=== PATIENT | female | born 1945 | race Caucasian/White ===

== ENCOUNTER 2017-10-02 06:38 | Emergency (ER) | payer OTHER ==
[~2017-10-02 06:38] MED LIST: A20IH1 IH; BUDE10.2 IH; DIAZ10TA4 PO; LEVO500T2 PO; LOSA1TAB42 PO; METH4TAB PO; MONT5TAB13 PO
[2017-10-02] MEDS ORDERED: IPRATROPIUM/ALBUTEROL SULFATE 3 ML SOLUTION IH ONE ×2 (06:57→07:51)
[2017-10-02] MEDS ORDERED: SODIUM CHLORIDE 0.9% 1000ML 1,000 ML IV ONE (06:59)
[2017-10-02] MEDS ORDERED: METHYLPREDNISOLONE SOD SUCC 125MG/2ML VIAL ONE (06:59)
[2017-10-02] MEDS ORDERED: ACETAMINOPHEN-CODEINE ELIXIR 5 ML UDCUP ONE (07:09)
[2017-10-02 07:14] LABS: BASOPHILS % (AUTO) 0.4 % (0.0-5.0); EOSINOPHILS % (AUTO) 0.2 % (0.0-8.0); HEMATOCRIT 42.8 % (36-48); LYMPHOCYTES % (AUTO) 18.8 % (21.0-51.0); MEAN CORPUSCULAR HEMOGLOBIN 32.1 pg (27.0-33.0); MEAN CORPUSCULAR HGB CONC 34.5 g/dL (32.0-36.0); MEAN CORPUSCULAR VOLUME 92.9 fL (79-99); MONOCYTES % (AUTO) 15.2 % (3.0-13.0); NEUTROPHILS % (AUTO) 65.4 % (40.0-77.0); PLATELET COUNT (AUTO) 158 K/uL (130-400); RED BLOOD CELL COUNT(AUTO) 4.61 MIL/uL (4.00-5.50); RED CELL DISTRIBUTION WIDTH 13.8 % (11.0-15.5); WHITE BLOOD COUNT (AUTO) 6.3 K/uL (4.8-10.8)
[2017-10-02 07:23] LABS: CREATININE 0.8 mg/dL (0.5-1.5); POTASSIUM 3.3 mmol/L (3.5-5.1)
[2017-10-02 07:26] LABS: INR 0.91 (0.85-1.15); PARTIAL THROMBOPLASTIN TIME 30.2 SEC (26.3-35.5); PROTHROMBIN TIME 9.6 SEC (9.6-11.6)
[2017-10-02 07:29] LABS: ALBUMIN 3.2 g/dL (3.5-5.0); BILIRUBIN,TOTAL 0.2 mg/dL (0.2-1.0)
[2017-10-02 07:46] LABS: B-TYPE NATRIURETIC PEPTIDE 33 pg/mL (0-100)
[2017-10-02] MEDS ORDERED: HYDROXYZINE HCL 25 MG TABLET ONE (07:47)
[2017-10-02] MEDS ORDERED: POTASSIUM CHLORIDE 20 MEQ ERTAB PO ONE (07:51)
[2017-10-02] MEDS ORDERED: ALBUTEROL SULFATE 0.083% 2.5 MG/3 ML INH IH ONE (08:02)
[2017-10-02 08:10] LABS: RAPID GROUP A STREP NEGATIVE (NEGATIVE)
== END 2017-10-02 08:42 | disposition home or self-care (01) ==
LOC: EDH 06:38
DX: J44.1 Chronic obstructive pulmonary disease with (acute) exacerbation (principal); J30.9 Allergic rhinitis, unspecified; F41.9 Anxiety disorder, unspecified; E11.9 Type 2 diabetes mellitus without complications; I10 Essential (primary) hypertension; Z88.8 Allergy status to other drugs, medicaments and biological substances; Z90.710 Acquired absence of both cervix and uterus
CPT/HCPCS: 36415; 71045; 80053; 83880; 84484; 85025; 85610; 85730; 87804 ×2; 87880; 93005; 94640 ×2; 96361; 96374; 99285; J2930; J7030

== ENCOUNTER 2017-10-03 23:40 | Inpatient (IN) | payer OTHER ==
[~2017-10-03] VITALS: Ht 170.2 cm; Wt 69.0 kg
[2017-10-03] MEDS ORDERED: IPRATROPIUM/ALBUTEROL SULFATE 3 ML SOLUTION IH ONE (23:46)
[2017-10-03] MEDS ORDERED: METHYLPREDNISOLONE SOD SUCC 125MG/2ML VIAL ONE (23:50)
[2017-10-04] VITALS (25 sets, daily range): BP systolic 80–163; BP diastolic 30–84
[2017-10-04 00:09] LABS: ABG OXYGEN SATURATION 75.1 % (95.0-99.0); BASE EXCESS,VENOUS BLOOD GAS -4.7 (-2.0-3.0); PCO2,VENOUS BLOOD GAS 134 (32-45); PH,VENOUS BLOOD GAS 6.997 (7.350-7.450)
[2017-10-04 00:19] LABS: CREATININE 0.8 mg/dL (0.5-1.5); POTASSIUM 4.6 mmol/L (3.5-5.1)
[2017-10-04 00:24] LABS: INR 0.92 (0.85-1.15); PARTIAL THROMBOPLASTIN TIME 26.6 SEC (26.3-35.5); PROTHROMBIN TIME 9.7 SEC (9.6-11.6)
[2017-10-04 00:27] LABS: BASOPHILS % (AUTO) 0.2 % (0.0-5.0); EOSINOPHILS % (AUTO) 0.1 % (0.0-8.0); HEMATOCRIT 47.3 % (36-48); LYMPHOCYTES % (AUTO) 21.7 % (21.0-51.0); MEAN CORPUSCULAR HEMOGLOBIN 31.6 pg (27.0-33.0); MEAN CORPUSCULAR HGB CONC 33.3 g/dL (32.0-36.0); MEAN CORPUSCULAR VOLUME 95.1 fL (79-99); MONOCYTES % (AUTO) 12.2 % (3.0-13.0); NEUTROPHILS % (AUTO) 65.8 % (40.0-77.0); NUCLEATED RED BLOOD CELLS 0.1 % (0.0-0.19); PLATELET COUNT (AUTO) 199 K/uL (130-400); RED BLOOD CELL COUNT(AUTO) 4.97 MIL/uL (4.00-5.50); RED CELL DISTRIBUTION WIDTH 13.9 % (11.0-15.5)
[2017-10-04 00:31] LABS: ALBUMIN 3.4 g/dL (3.5-5.0); BILIRUBIN,TOTAL 0.2 mg/dL (0.2-1.0); CREATINE KINASE MB 13.4 ng/mL (0.5-3.6)
[2017-10-04 00:43] LABS: B-TYPE NATRIURETIC PEPTIDE 116 pg/mL (0-100)
[2017-10-04 00:46] LABS: APPEARANCE,URINE Cloudy (CLEAR); BILIRUBIN,URINE Negative (NEGATIVE); COLOR,URINE Yellow (YELLOW); GLUCOSE, URINE (UA) 250 mg/dL (NEGATIVE); KETONES,URINE Negative (NEGATIVE); LEUKOCYTE ESTERASE ,URINE Negative (NEGATIVE); NITRATE,URINE Negative (NEGATIVE); OCCULT BLOOD,URINE Moderate (NEGATIVE); PROTEIN,URINE 300 (NEGATIVE); UROBILINOGEN,URINE 0.2 mg/dL (0.2-1.0)
[2017-10-04] MEDS ORDERED: SODIUM CHLORIDE 0.9% 500ML 500 ML IV ONE ×2 (00:51→10:01)
[2017-10-04] MEDS ORDERED: ASPIRIN 325 MG TABLET ONE ×2 (00:51→01:21)
[2017-10-04 01:02] LABS: BACTERIA,URINE Many /HPF (None Seen)
[2017-10-04] MEDS ORDERED: SODIUM CHLORIDE 0.9% 1000ML 1,000 ML IV ONE (01:06)
[2017-10-04] MEDS ORDERED: PROPOFOL 1000 MG/100 ML 100 ML IV ONE (01:06)
[2017-10-04] MEDS ORDERED: CEFTRIAXONE SODIUM 1 GM ONE (01:46)
[2017-10-04] MEDS ORDERED: AZITHROMYCIN 500MG+NS 250ML 250 ML IV ONE (01:46)
[2017-10-04] MEDS ORDERED: SODIUM CHLORIDE 0.9% 50 ML IV ONE ×2 (01:47→04:29)
[2017-10-04 02:06] LABS: ABG BASE EXCESS -3.4 mmol/L (-2.0-3.0); ABG OXYGEN SATURATION 97.4 % (95.0-99.0); ABG PCO2 59 mmHg (32-45)
[2017-10-04] MEDS ORDERED: ALBUTEROL SULFATE 0.083% 2.5 MG/3 ML INH IH ONE (02:14)
[2017-10-04] MEDS ORDERED: NOREPINEPHRINE BITARTRATE 1 MG/1 ML ML IV ONE (02:53)
[2017-10-04] MEDS ORDERED: MIDAZOLAM HCL 5 MG/ML 2ML VIAL IV ONE ×2 (02:56→04:29)
[2017-10-04 03:55] LABS: ABG BASE EXCESS -7.5 mmol/L (-2.0-3.0); ABG HCO3 21.2 mmol/L (21.0-28.0); ABG OXYGEN SATURATION 87.9 % (95.0-99.0); ABG PCO2 56 mmHg (32-45)
[2017-10-04 06:28] LABS: HEMATOCRIT 47.7 % (36-48); MEAN CORPUSCULAR HEMOGLOBIN 31.5 pg (27.0-33.0); MEAN CORPUSCULAR HGB CONC 32.9 g/dL (32.0-36.0); MEAN CORPUSCULAR VOLUME 95.7 fL (79-99); NUCLEATED RED BLOOD CELLS 0.1 % (0.0-0.19); PLATELET COUNT (AUTO) 192 K/uL (130-400); RED BLOOD CELL COUNT(AUTO) 4.99 MIL/uL (4.00-5.50); RED CELL DISTRIBUTION WIDTH 14.1 % (11.0-15.5); WHITE BLOOD COUNT (AUTO) 17.6 K/uL (4.8-10.8)
[2017-10-04] MEDS ORDERED: METHYLPREDNISOLONE SOD SUCC 125MG/2ML VIAL ONE (06:39)
[2017-10-04] MEDS: CEFTRIAXONE SODIUM 1 GM IVP SCH (07:30)
[2017-10-04] MEDS: AZITHROMYCIN 250 MG in SODIUM CHLORIDE 0.9% 250 ML IV SCH (07:30)
[2017-10-04] MEDS: METHYLPREDNISOLONE SOD SUCC 125MG/2ML VIAL IVP SCH ×4 (07:30→20:51)
[2017-10-04] MEDS ORDERED: IPRATROPIUM/ALBUTEROL SULFATE 3 ML SOLUTION IH ONE (07:32)
[2017-10-04] MEDS: SODIUM CHLORIDE 0.9% 1000ML 1,000 ML IV SCH ×2 (07:35→14:53)
[2017-10-04 07:37] LABS: LYMPHOCYTES % (MANUAL) 4 % (22-44); MAN.DIFF COMMENT-IMPRESSION MANUAL DIFFERENTIAL; MONOCYTES % (MANUAL) 13 % (2-9); PLATELET MORPHOLOGY COMMENT ADEQUATE; SEGMENTED NEUTROPHILS % 83 % (40-70)
[2017-10-04 07:46] LABS: CREATININE 0.9 mg/dL (0.5-1.5); POTASSIUM 4.2 mmol/L (3.5-5.1)
[2017-10-04] MEDS: ALBUTEROL SULFATE 0.083% 2.5 MG/3 ML INH IH SCH ×5 (07:53→21:50)
[2017-10-04 08:32] LABS: CREATINE KINASE MB 6.3 ng/mL (0.5-3.6)
[2017-10-04 08:35] LABS: TROPONIN I 1.8 ng/mL (0.00-0.06)
[2017-10-04] MEDS ORDERED: LIDOCAINE HCL 1% 20 ML VIAL ONE (08:53)
[2017-10-04] MEDS ORDERED: DEXTROSE 50%-WATER 50 ML DISP.SYRIN IV PRN (09:45)
[2017-10-04] MEDS ORDERED: MIDAZOLAM 100MG-0.9% NS 100ML 100 ML IV PRN (09:45)
[2017-10-04] MEDS ORDERED: POTASSIUM CHLORIDE 20 MEQ ERTAB PO PRN (09:45)
[2017-10-04] MEDS ORDERED: NOREPINEPHRINE BITARTRATE 8 MG in DEXTROSE 5%-WATER 250 ML IV SCH (09:45)
[2017-10-04] MEDS ORDERED: GLUCAGON 1MG KIT 1 MG ML IM PRN (09:45)
[2017-10-04] MEDS ORDERED: POTASSIUM CHLORIDE 20MEQ/100ML 100 ML IV PRN (09:45)
[2017-10-04] MEDS ORDERED: POTASSIUM CHLORIDE 10% ELIXIR 20 MEQ/15 ML UDCUP PO PRN (09:45)
[2017-10-04] MEDS ORDERED: MAGNESIUM 2GM PREMIX 50ML 50 ML IV PRN (09:45)
[2017-10-04] MEDS ORDERED: VANCOMYCIN PROTOCOL PER PHARMACY IV SCH (09:45)
[2017-10-04] MEDS ORDERED: LIDOCAINE HCL-MPF 1% 2ML VIAL IVP PRN (09:45)
[2017-10-04] MEDS: FAMOTIDINE/PF 20 MG/2 ML VIAL IV SCH ×2 (10:27→20:51)
[2017-10-04] MEDS: ENOXAPARIN SODIUM 40 MG/0.4 ML SYRINGE SQ SCH (10:28)
[2017-10-04] MEDS ORDERED: OMEP40CA37 PO (11:42)
[2017-10-04] MEDS ORDERED: PARO-37 PO (11:42)
[2017-10-04] MEDS ORDERED: COMPOUND IV REFRIGERATED 1 EACH IVSOLN MISC PRN (12:00)
[2017-10-04] MEDS ORDERED: ETOMIDATE 2 MG/ML 10 ML VIAL IVP ONE (12:00)
[2017-10-04] MEDS ORDERED: ROCURONIUM BROMIDE 10MG/1ML 5ML VL IV ONE (12:00)
[2017-10-04 12:13] LABS: CREATINE KINASE MB 23.5 ng/mL (0.5-3.6)
[2017-10-04] MEDS: PROPOFOL 1000 MG/100 ML 100 ML IV PRN ×2 (12:37→23:33)
[2017-10-04 12:41] LABS: TROPONIN I 6.19 ng/mL (0.00-0.06)
[2017-10-04] MEDS: VANCOMYCIN 1GM+NS 250ML 250 ML IV SCH ×2 (13:04→20:52)
[2017-10-04] MEDS: INSULIN HUMULIN R 100 UNIT/ML 3ML SQ SCH ×2 (13:05→19:31)
[2017-10-04] MEDS: FENTANYL 2500MCG+NS 250ML 250 ML IV PRN (14:47)
[2017-10-05] VITALS (33 sets, daily range): BP systolic 68–186; BP diastolic 40–110
[2017-10-05] MEDS ORDERED: AZITHROMYCIN 500MG+NS 250ML 0 ML IV ONE (01:41)
[2017-10-05] MEDS: ALBUTEROL SULFATE 0.083% 2.5 MG/3 ML INH IH SCH ×7 (02:06→22:23)
[2017-10-05] MEDS: CEFTRIAXONE SODIUM 1 GM IVP SCH (02:38)
[2017-10-05] MEDS: METHYLPREDNISOLONE SOD SUCC 125MG/2ML VIAL IVP SCH ×4 (02:39→21:13)
[2017-10-05] MEDS: SODIUM CHLORIDE 0.9% 1000ML 1,000 ML IV SCH ×2 (02:42→18:17)
[2017-10-05] MEDS: AZITHROMYCIN 250 MG in SODIUM CHLORIDE 0.9% 250 ML IV SCH ×2 (02:42→06:45)
[2017-10-05 04:40] LABS: CREATINE KINASE MB 10.4 ng/mL (0.5-3.6); CREATININE 0.8 mg/dL (0.5-1.5); POTASSIUM 3.6 mmol/L (3.5-5.1)
[2017-10-05 04:43] LABS: TROPONIN I 3.46 ng/mL (0.00-0.06)
[2017-10-05] MEDS: INSULIN HUMULIN R 100 UNIT/ML 3ML SQ SCH ×4 (06:00→18:00)
[2017-10-05] MEDS: ASPIRIN 325 MG TABLET PO SCH (09:18)
[2017-10-05] MEDS: FAMOTIDINE/PF 20 MG/2 ML VIAL IV SCH ×2 (09:18→21:49)
[2017-10-05] MEDS: VANCOMYCIN 1GM+NS 250ML 250 ML IV SCH ×2 (09:18→21:39)
[2017-10-05 09:20] LABS: ABG HCO3 23.4 mmol/L (21.0-28.0); ABG OXYGEN SATURATION 87.3 % (95.0-99.0); ABG PCO2 63 mmHg (32-45)
[2017-10-05] MEDS: ENOXAPARIN SODIUM 40 MG/0.4 ML SYRINGE SQ SCH (09:20)
[2017-10-05] MEDS: PROPOFOL 1000 MG/100 ML 100 ML IV PRN ×3 (09:21→22:00)
[2017-10-05] MEDS: SODIUM CHLORIDE 0.9% 500ML 500 ML IV PRN ×3 (11:53→15:41)
[2017-10-05] MEDS: FENTANYL 2500MCG+NS 250ML 250 ML IV PRN (13:12)
[2017-10-05 13:57] LABS: BASOPHILS % (AUTO) 0.1 % (0.0-5.0); HEMATOCRIT 40.9 % (36-48); LYMPHOCYTES % (AUTO) 7.3 % (21.0-51.0); MEAN CORPUSCULAR HEMOGLOBIN 32.8 pg (27.0-33.0); MEAN CORPUSCULAR HGB CONC 34.9 g/dL (32.0-36.0); MONOCYTES % (AUTO) 6.7 % (3.0-13.0); NEUTROPHILS % (AUTO) 85.9 % (40.0-77.0); PLATELET COUNT (AUTO) 178 K/uL (130-400); RED BLOOD CELL COUNT(AUTO) 4.35 MIL/uL (4.00-5.50); RED CELL DISTRIBUTION WIDTH 13.9 % (11.0-15.5); WHITE BLOOD COUNT (AUTO) 10.4 K/uL (4.8-10.8)
[2017-10-05 18:28] LABS: MAGNESIUM 1.9 mg/dL (1.80-2.40); POTASSIUM 4.5 mmol/L (3.5-5.1)
[2017-10-05] MEDS ORDERED: IPRATROPIUM 0.5 MG/2.5 ML INH IH ONE ×2 (19:12→19:32)
[2017-10-05] MEDS ORDERED: NOREPINEPHRINE BITARTRATE 8 MG in SODIUM CHLORIDE 0.9% 250 ML IV SCH (20:30)
[2017-10-06] VITALS (44 sets, daily range): BP systolic 76–177; BP diastolic 44–98
[2017-10-06] MEDS: INSULIN HUMULIN R 100 UNIT/ML 3ML SQ SCH ×4 (00:21→18:00)
[2017-10-06] MEDS: ALBUTEROL SULFATE 0.083% 2.5 MG/3 ML INH IH SCH ×6 (02:13→21:35)
[2017-10-06] MEDS: METHYLPREDNISOLONE SOD SUCC 125MG/2ML VIAL IVP SCH ×4 (02:33→20:45)
[2017-10-06] MEDS: AZITHROMYCIN 250 MG in SODIUM CHLORIDE 0.9% 250 ML IV SCH (02:33)
[2017-10-06] MEDS: CEFTRIAXONE SODIUM 1 GM IVP SCH (02:33)
[2017-10-06 03:31] LABS: HEMATOCRIT 39.8 % (36-48); MEAN CORPUSCULAR HEMOGLOBIN 32.2 pg (27.0-33.0); MEAN CORPUSCULAR HGB CONC 34.1 g/dL (32.0-36.0); MEAN CORPUSCULAR VOLUME 94.6 fL (79-99); PLATELET COUNT (AUTO) 145 K/uL (130-400); RED BLOOD CELL COUNT(AUTO) 4.21 MIL/uL (4.00-5.50); RED CELL DISTRIBUTION WIDTH 14.5 % (11.0-15.5); WHITE BLOOD COUNT (AUTO) 9.2 K/uL (4.8-10.8)
[2017-10-06 04:07] LABS: CREATININE 0.9 mg/dL (0.5-1.5); POTASSIUM 4.2 mmol/L (3.5-5.1)
[2017-10-06] MEDS: PROPOFOL 1000 MG/100 ML 100 ML IV PRN ×2 (07:54→15:09)
[2017-10-06] MEDS: ENOXAPARIN SODIUM 40 MG/0.4 ML SYRINGE SQ SCH (08:01)
[2017-10-06] MEDS: FAMOTIDINE/PF 20 MG/2 ML VIAL IV SCH ×2 (08:02→20:47)
[2017-10-06] MEDS: ASPIRIN 325 MG TABLET PO SCH (08:02)
[2017-10-06] MEDS: FENTANYL 2500MCG+NS 250ML 250 ML IV PRN (08:02)
[2017-10-06] MEDS: VANCOMYCIN 1GM+NS 250ML 250 ML IV SCH ×2 (08:30→21:00)
[2017-10-06] MEDS: SODIUM CHLORIDE 0.9% 1000ML 1,000 ML IV SCH ×2 (13:03→20:46)
[2017-10-06 14:18] LABS: ABG BASE EXCESS -3.3 mmol/L (-2.0-3.0); ABG HCO3 22.5 mmol/L (21.0-28.0); ABG OXYGEN SATURATION 91.9 % (95.0-99.0); ABG PCO2 43 mmHg (32-45)
[2017-10-06] MEDS ORDERED: QUETIAPINE FUMARATE 25 MG TAB PO SCH (21:00)
[2017-10-07] VITALS (37 sets, daily range): BP systolic 78–190; BP diastolic 37–115
[2017-10-07] MEDS: INSULIN HUMULIN R 100 UNIT/ML 3ML SQ SCH ×5 (00:28→23:56)
[2017-10-07] MEDS: PROPOFOL 1000 MG/100 ML 100 ML IV PRN ×2 (01:08→09:57)
[2017-10-07] MEDS: ALBUTEROL SULFATE 0.083% 2.5 MG/3 ML INH IH SCH ×6 (02:05→22:01)
[2017-10-07] MEDS: METHYLPREDNISOLONE SOD SUCC 125MG/2ML VIAL IVP SCH ×4 (02:34→20:26)
[2017-10-07] MEDS: CEFTRIAXONE SODIUM 1 GM IVP SCH (02:34)
[2017-10-07] MEDS: AZITHROMYCIN 250 MG in SODIUM CHLORIDE 0.9% 250 ML IV SCH (02:56)
[2017-10-07] MEDS: FENTANYL 2500MCG+NS 250ML 250 ML IV PRN (02:56)
[2017-10-07 05:29] LABS: CREATININE 1.1 mg/dL (0.5-1.5); POTASSIUM 4.7 mmol/L (3.5-5.1)
[2017-10-07 05:31] LABS: HEMATOCRIT 43.7 % (36-48); MEAN CORPUSCULAR HEMOGLOBIN 31.3 pg (27.0-33.0); MEAN CORPUSCULAR HGB CONC 33.3 g/dL (32.0-36.0); MEAN CORPUSCULAR VOLUME 93.9 fL (79-99); PLATELET COUNT (AUTO) 229 K/uL (130-400); RED BLOOD CELL COUNT(AUTO) 4.65 MIL/uL (4.00-5.50); RED CELL DISTRIBUTION WIDTH 14.4 % (11.0-15.5); WHITE BLOOD COUNT (AUTO) 11.7 K/uL (4.8-10.8)
[2017-10-07 05:32] LABS: MAGNESIUM 2.3 mg/dL (1.80-2.40); PHOSPHORUS 5.1 mg/dL (2.5-4.9)
[2017-10-07 05:34] LABS: BAND NEUTROPHILS % (MANUAL) 3 % (0-2); LYMPHOCYTES % (MANUAL) 4 % (22-44); MAN.DIFF COMMENT-IMPRESSION MANUAL DIFFERENTIAL; MONOCYTES % (MANUAL) 5 % (2-9); PLATELET MORPHOLOGY COMMENT ADEQUATE; SEGMENTED NEUTROPHILS % 88 % (40-70)
[2017-10-07] MEDS ORDERED: COMPOUND IV REFRIGERATED 1 EACH IVSOLN MISC PRN (07:00)
[2017-10-07] MEDS: VANCOMYCIN 750MG + NS 250 ML IV SCH ×2 (07:25)
[2017-10-07] MEDS: QUETIAPINE FUMARATE 25 MG TAB PO SCH ×2 (09:00→20:26)
[2017-10-07] MEDS: ENOXAPARIN SODIUM 40 MG/0.4 ML SYRINGE SQ SCH (09:32)
[2017-10-07] MEDS: FAMOTIDINE/PF 20 MG/2 ML VIAL IV SCH ×2 (09:32→20:26)
[2017-10-07] MEDS: ASPIRIN 325 MG TABLET PO SCH (09:32)
[2017-10-07] MEDS: SODIUM CHLORIDE 0.9% 1000ML 1,000 ML IV SCH ×2 (10:15→23:35)
[2017-10-07] MEDS: SODIUM CHLORIDE 0.9% 500ML 500 ML IV PRN (19:36)
[2017-10-07] MEDS: METOCLOPRAMIDE 10 MG/2 ML VIAL IVP SCH (20:43)
[2017-10-08] VITALS (28 sets, daily range): BP systolic 80–189; BP diastolic 44–99
[2017-10-08] MEDS: CEFTRIAXONE SODIUM 1 GM IVP SCH (01:55)
[2017-10-08] MEDS: AZITHROMYCIN 500MG+NS 250ML 250 ML IV SCH (01:55)
[2017-10-08] MEDS: METHYLPREDNISOLONE SOD SUCC 125MG/2ML VIAL IVP SCH (01:55)
[2017-10-08] MEDS: PROPOFOL 1000 MG/100 ML 100 ML IV PRN ×4 (02:08→22:50)
[2017-10-08] MEDS: ALBUTEROL SULFATE 0.083% 2.5 MG/3 ML INH IH SCH ×6 (04:27→22:20)
[2017-10-08] MEDS: METOCLOPRAMIDE 10 MG/2 ML VIAL IVP SCH ×4 (05:00→21:23)
[2017-10-08 05:17] LABS: BASOPHILS % (AUTO) 0.1 % (0.0-5.0); HEMATOCRIT 39.5 % (36-48); LYMPHOCYTES % (AUTO) 8.2 % (21.0-51.0); MEAN CORPUSCULAR HGB CONC 34.3 g/dL (32.0-36.0); MEAN CORPUSCULAR VOLUME 93.2 fL (79-99); MONOCYTES % (AUTO) 3.1 % (3.0-13.0); NEUTROPHILS % (AUTO) 88.6 % (40.0-77.0); PLATELET COUNT (AUTO) 164 K/uL (130-400); RED BLOOD CELL COUNT(AUTO) 4.24 MIL/uL (4.00-5.50); RED CELL DISTRIBUTION WIDTH 14.5 % (11.0-15.5); WHITE BLOOD COUNT (AUTO) 6.5 K/uL (4.8-10.8)
[2017-10-08] MEDS: INSULIN HUMULIN R 100 UNIT/ML 3ML SQ SCH ×3 (05:29→18:13)
[2017-10-08 05:31] LABS: CREATININE 0.9 mg/dL (0.5-1.5); MAGNESIUM 2.4 mg/dL (1.80-2.40); POTASSIUM 5.1 mmol/L (3.5-5.1)
[2017-10-08] MEDS: VANCOMYCIN 750MG + NS 250 ML IV SCH ×4 (06:18→06:25)
[2017-10-08] MEDS: FENTANYL 2500MCG+NS 250ML 250 ML IV PRN (10:18)
[2017-10-08] MEDS: ASPIRIN 325 MG TABLET PO SCH (10:27)
[2017-10-08] MEDS: PREDNISONE 20 MG TABLET PO SCH (10:27)
[2017-10-08] MEDS: QUETIAPINE FUMARATE 25 MG TAB PO SCH ×2 (10:27→21:22)
[2017-10-08] MEDS: ENOXAPARIN SODIUM 40 MG/0.4 ML SYRINGE SQ SCH (10:28)
[2017-10-08] MEDS: FAMOTIDINE/PF 20 MG/2 ML VIAL IV SCH ×2 (12:48→21:22)
[2017-10-09] VITALS (13 sets, daily range): BP systolic 91–152; BP diastolic 46–69
[2017-10-09] MEDS: INSULIN HUMULIN R 100 UNIT/ML 3ML SQ SCH ×2 (00:12→05:53)
[2017-10-09] MEDS: ALBUTEROL SULFATE 0.083% 2.5 MG/3 ML INH IH SCH ×3 (01:58→09:51)
[2017-10-09] MEDS: CEFTRIAXONE SODIUM 1 GM IVP SCH (02:47)
[2017-10-09] MEDS: AZITHROMYCIN 500MG+NS 250ML 250 ML IV SCH (02:47)
[2017-10-09] MEDS: VANCOMYCIN 750MG + NS 250 ML IV SCH ×2 (05:58)
[2017-10-09] MEDS: PROPOFOL 1000 MG/100 ML 100 ML IV PRN (07:56)
[2017-10-09] MEDS: SODIUM CHLORIDE 0.9% 500ML 500 ML IV PRN (07:57)
[2017-10-09] MEDS: PREDNISONE 20 MG TABLET PO SCH (08:06)
[2017-10-09] MEDS: FAMOTIDINE/PF 20 MG/2 ML VIAL IV SCH (08:06)
[2017-10-09] MEDS: QUETIAPINE FUMARATE 25 MG TAB PO SCH (08:06)
[2017-10-09] MEDS: ASPIRIN 325 MG TABLET PO SCH (08:07)
[2017-10-09] MEDS: ENOXAPARIN SODIUM 40 MG/0.4 ML SYRINGE SQ SCH (08:07)
== END 2017-10-09 09:59 | disposition hospice, inpatient (51) | DRG 870 ==
LOC: EDH 23:40 → EDHIP 10-04 02:33 → 2CH 10-04 07:46 → 2BH 10-05 16:52
PROVIDERS: ADMIT Family Medicine; ATTEND Family Medicine
PROC: 0BH17EZ Insertion of Endotracheal Airway into Trachea, Via Natural or Artificial Opening (ICD-10-PCS; principal; 2017-10-04)
PROC: 5A1955Z Respiratory Ventilation, Greater than 96 Consecutive Hours (ICD-10-PCS; 2017-10-04)
PROC: 0W9930Z Drainage of Right Pleural Cavity with Drainage Device, Percutaneous Approach (ICD-10-PCS; 2017-10-04)
PROC: 05HM33Z Insertion of Infusion Device into Right Internal Jugular Vein, Percutaneous Approach (ICD-10-PCS; 2017-10-04)
PROC: B543ZZA Ultrasonography of Right Jugular Veins, Guidance (ICD-10-PCS; 2017-10-04)
DX: A41.9 Sepsis, unspecified organism (principal); I21.4 Non-ST elevation (NSTEMI) myocardial infarction; J44.1 Chronic obstructive pulmonary disease with (acute) exacerbation; J93.0 Spontaneous tension pneumothorax; J96.01 Acute respiratory failure with hypoxia; J96.02 Acute respiratory failure with hypercapnia; Z99.11 Dependence on respirator [ventilator] status; R65.21 Severe sepsis with septic shock; J45.901 Unspecified asthma with (acute) exacerbation; J93.82 Other air leak; I10 Essential (primary) hypertension; I25.10 Atherosclerotic heart disease of native coronary artery without angina pectoris; E11.65 Type 2 diabetes mellitus with hyperglycemia; I25.5 Ischemic cardiomyopathy; Z66 Do not resuscitate; Z87.891 Personal history of nicotine dependence; Z90.710 Acquired absence of both cervix and uterus; Z88.8 Allergy status to other drugs, medicaments and biological substances
CPT/HCPCS: 10060; 31500; 36415; 36556; 36600; 71045; 80048; 80053; 80202; 81001; 82330; 82435; 82550; 82553; 82803; 82947; 82948; 83605; 83735; 83874; 83880; 84100; 84132; 84295; 84484; 85025; 85027; 85610; 85730; 87040; 87071; 87088; 87205; 87804; 93005; 93306; 94002; 94003; 94640; 94664; 99291; A4218; C1751; J0456; J0696; J1650; J1815; J2250; J2704; J2930; J3010; J3370; J3480; J3490; J7030; J7040; J7060

== ENCOUNTER 2017-10-09 10:00 | Inpatient (IN) | payer OTHER ==
[~2017-10-09 10:00] MED LIST changes: -A20IH1 IH; -DIAZ10TA4 PO; -LEVO500T2 PO; -METH4TAB PO; -MONT5TAB13 PO; +OMEP40CA37 PO; +PARO-37 PO
[2017-10-09] MEDS ORDERED: LORAZEPAM 2 MG/ML 1 ML VIAL IVP PRN (11:45)
[2017-10-09] MEDS ORDERED: ACETAMINOPHEN 650 MG SUPPOSITORY RC PRN (11:45)
[2017-10-09] MEDS ORDERED: LORAZEPAM 2 MG/ML 1 ML VIAL IVP SCH (11:45)
[2017-10-09] MEDS ORDERED: FENTANYL 2500MCG+NS 250ML 250 ML IV PRN (11:45)
[2017-10-09] MEDS ORDERED: GLYCOPYRROLATE 0.2 MG/ML 5 ML VIAL IM SCH (12:00)
[2017-10-09] MEDS ORDERED: BISACODYL 10 MG SUPP.RECT RC PRN (12:00)
[2017-10-09] MEDS ORDERED: ONDANSETRON HCL 4 MG/2 ML VIAL IVP PRN (12:00)
[2017-10-09 12:27] VITALS: BP 107/56
[2017-10-09] MEDS: HYDROMORPHONE HCL 0.5 MG/0.5 ML ML IVP PRN ×3 (13:34→16:52)
[2017-10-09] MEDS ORDERED: GLYCOPYRROLATE 0.2 MG/ML 5 ML VIAL IVP SCH (16:43)
== END 2017-10-09 17:50 | disposition expired | DRG 208 ==
LOC: 2BH 10:00
PROVIDERS: ADMIT Family Medicine; ATTEND Family Medicine
PROC: 5A1935Z Respiratory Ventilation, Less than 24 Consecutive Hours (ICD-10-PCS; principal; 2017-10-09)
PROC: 0BH17EZ Insertion of Endotracheal Airway into Trachea, Via Natural or Artificial Opening (ICD-10-PCS; 2017-10-09)
DX: J96.01 Acute respiratory failure with hypoxia (principal); J44.1 Chronic obstructive pulmonary disease with (acute) exacerbation; D72.829 Elevated white blood cell count, unspecified; Z66 Do not resuscitate
CPT/HCPCS: J1170; J2060; J2405; J3010; J3490